=== PATIENT | male | born 1975 | race Caucasian/White ===

== ENCOUNTER 2023-10-24 20:50 | Emergency (ER) | payer BC, OTHER ==
[2023-10-24] MEDS ORDERED: Sodium Chloride 0.9% 1,000 ML ONE (21:20)
[2023-10-24 21:33] LABS: #Basophils 0.1 thou/uL (0.0-0.2); #Eosinphils 0.5 thou/uL (0.0-0.7); #Lymphocytes 4.6 thou/uL (1.20-3.40); #Monocytes 0.9 thou/uL (0.11-0.59); #Neutrophils 5.2 thou/uL (1.40-6.50); %Basophils 1.2 % (0.0-1.0); %Eosinophils 4.3 % (0.0-10.0); %Lymphocytes 40.4 % (21.0-51.0); %Monocytes 7.7 % (0.0-10.0); %Neutrophils 46.4 % (42.0-75.0); Hematocrit 36.7 % (42.0-52.0); Hemoglobin 11.6 g/dL (14.0-18.0); Mean Corpuscular HGB CONC 31.6 g/dL (32.0-36.0); Mean Corpuscular Hemoglobin 29.4 pg (27.0-31.0); Mean Corpuscular Volume 93.1 fl (78.0-98.0); Mean Platelet Volume 8.2 fL (7.4-10.4); Platelet Count 228 10x3/uL (130-400); RBC Distribution Width 13.1 % (11.5-14.5); Red Blood Cell (RBC) Count 3.95 mill/uL (4.70-6.10); White Blood Cell (WBC) Count 11.3 10x3/uL (4.8-10.8)
[2023-10-24 21:54] LABS: ALT (SGPT) 70 U/L (8-55); AST (SGOT) 44 U/L (5-34); Albumin 3.7 g/dL (3.5-5.0); Alkaline Phosphatase 98 U/L (40-110); Anion Gap 17 mmol/L (10-20); BUN (Urea Nitrogen) 18 mg/dL (8.9-20.6); Bilirubin, Total 0.3 mg/dL (0.2-1.2); Calc. Creatinine Clearance 0 mL/min (70-130); Carbon Dioxide 23 mmol/L (22-29); Chloride 100 mmol/L (98-107); Estimated GFR 92; Globulin 2.5 g/dL (2.4-3.5); Glucose 220 mg/dL (70-105); Lipase 18 U/L (8-78); Magnesium 1.9 mg/dL (1.6-2.6); Potassium 4.1 mmol/L (3.5-5.1); Protein, Total 6.2 g/dL (6.0-8.3); Sodium 136 mmol/L (136-145)
[2023-10-24 23:13] LABS: Hematocrit 34.9 % (42.0-52.0); Hemoglobin 10.8 g/dL (14.0-18.0)
[2023-10-25 00:56] LABS: Lactic Acid 1.5 mmol/L (0.5-2.2)
[2023-10-25 01:34] LABS: Hematocrit 32.5 % (42.0-52.0); Hemoglobin 10.4 g/dL (14.0-18.0)
[2023-10-25 02:06] LABS: Hematocrit 34.6 % (42.0-52.0); Hemoglobin 10.8 g/dL (14.0-18.0)
[2023-10-25 15:44] LABS: Campy jejuni + coli by PCR Negative (Negative); STEC Shiga Toxin 1+2 Negative (Negative); Salmonella spp. by PCR Negative (Negative); Shigella spp + EIEC by PCR Negative (Negative)
== END 2023-10-25 02:22 | disposition home or self-care (01) ==
LOC: MADERS 20:50
DX: R19.7 Diarrhea, unspecified (principal); R19.5 Other fecal abnormalities; I10 Essential (primary) hypertension; Z87.891 Personal history of nicotine dependence
CPT/HCPCS: 80053; 82274; 83605; 83690; 83735; 83880; 85014; 85018; 85025; 86850; 86900; 86901; 87324; 87449; 87505; 96360; 96361; J7050

== ENCOUNTER 2023-10-25 23:57 | Emergency (ER) | payer BC ==
[2023-10-26] MEDS ORDERED: Sodium Chloride 0.9% 1,000 ML ONE (00:16)
== END 2023-10-26 00:20 | disposition left against medical advice (07) ==
LOC: MADERS 23:57
DX: K92.2 Gastrointestinal hemorrhage, unspecified (principal); R00.0 Tachycardia, unspecified; I10 Essential (primary) hypertension; Z87.891 Personal history of nicotine dependence; R19.7 Diarrhea, unspecified; R19.5 Other fecal abnormalities
CPT/HCPCS: 80053; 82274; 83605; 83690; 83735; 83880; 85014; 85018; 85025; 86850; 86900; 86901; 87324; 87449; 87505; 96360; 96361; J7050